=== PATIENT | female | born 1990 | race African-American/Black ===

== ENCOUNTER 2016-03-22 18:54 | Emergency (ER) | payer OTHER ==
[2016-03-22 19:25] VITALS: BP 119/68; PULSE 77; TEMP 98.4; BMI 29.9
--- NOTE | 2016-03-22 19:32 | PDOC ---
History of Present Illness - General Chief Complaint: Cold Symptoms Stated Complaint: NECK PAIN/SORE THROAT Time Seen by Provider: 03/22/16 19:24 History Source: Patient Exam Limitations: No Limitations - History of Present Illness Initial Comments: CHIEF COMPLAINT: 25 y/o afebrile female with no significant PMH c/o sore throat and head congestion since last night. HISTORY OF PRESENT ILLNESS: The patient denies f/c, n/v/d, CP, SOB, runny nose , cough, body aches, abd pain, back pain. She took 1 advil liquid gel yesterday which didn't help much. She did not receive the flu shot this year. Vital signs on arrival are within normal limits. REVIEW OF SYSTEMS: GENERAL/CONSTITUTIONAL: No fever/chills. No weakness. No weight change. HEAD, EYES, EARS, NOSE AND THROAT: No change in vision. No ear pain or discharge. +sore throat. +head congestion. CARDIOVASCULAR: No chest pain or shortness of breath. RESPIRATORY: No cough, wheezing, or hemoptysis. GASTROINTESTINAL: No abd pain, nausea, vomiting, diarrhea. . GENITOURINARY: No dysuria, frequency, or change in urination. MUSCULOSKELETAL: No joint or muscle swelling or pain. No back pain. +neck pain SKIN: No rash or easy bruising. NEUROLOGIC: No headache, vertigo, loss of consciousness, or loss of sensation. PHYSICAL EXAM: GENERAL: The patient is awake, alert, and fully oriented, in no acute distress. She is very well appearing, ambulatory, in NAD or obvious discomfort. HEAD: Normal with no signs of trauma. No TTP of sinuses. ENT: Pupils equal, round and reactive to light, extraocular movements intact, sclera anicteric, conjunctiva clear. Minimal posterior pharyngeal erythema without tonsilar edema or exudate. NECK: No cervical lymphadenopathy. No midline C-spine TTP or step offs. TTP of b/l cervical paravertebral muscles. Full ROM of cervical spine. LUNGS: Clear to auscultation bilaterally. Normal excursion. No respiratory distress or use of accessory muscles. CV: RRR, S1/S2, no MRG. Cap refill < 2 sec. ABDOMEN: Soft, non-distended, non-tender even to deep palpation, no hepatomegaly or splenomegaly, no masses. EXTREMITIES: Normal range of motion, no edema. NEUROLOGICAL: Normal speech, normal gait. CN II-XII grossly intact. PSYCH: Normal mood, normal affect. SKIN: Warm, dry, normal turgor, no rashes or lesions noted. Past History - Past Medical History Allergies/Adverse Reactions: Allergies Allergy/AdvReac Type Severity Reaction Status Date / Time shellfish derived Allergy Hives Verified 03/22/16 19:18 Home Medications: Ambulatory Orders Albuterol Sulfate Inhaler - [Ventolin HFA Inhaler -] 1 - 2 inh PO QID PRN Phenazopyridine HCl [Pyridium] 200 mg PO TID #5 tablet 08/24/13 Sulfamethoxazole/Trimethoprim [Bactrim DS -] 1 tab PO BID #5 tablet 08/24/13 Asthma: Yes - Family Disease History Family Disease History: Other: Mother (cervical cancer) - Reproductive History (#): 0 Para: 0 - Psycho/Social/Smoking Cessation Hx Anxiety: No Suicidal Ideation: No Smoking Status: No Smoking History: Never smoked Number of Cigarettes Smoked Daily: 0 Hx Alcohol Use: No Substance Use Type: None *Physical Exam - Vital Signs Last Vital Signs Temp Pulse Resp BP Pulse Ox 98.4 F 77 18 119/68 99 03/22/16 19:15 03/22/16 19:15 03/22/16 19:15 03/22/16 19:15 03/22/16 19:15 Medical Decision Making - Medical Decision Making A/P: 25 y/o female with head cold and sore throat. Plan is to discharge to home with supportive care instructions. Pt instructed to return to the ER with any worsening or concerning symptoms. The patient verbalizes understanding of all instructions, has no further questions and is awaiting discharge. *DC/Admit/Observation/Transfer Diagnosis at time of Disposition: Head cold - Discharge Dispostion Disposition: HOME Condition at time of disposition: Good - Referrals Referrals: Susan Wilkinson [Primary Care Provider] - - Patient Instructions Printed Discharge Instructions: DI for Nasal Congestion, DI for Common Cold Additional Instructions: Discharge Instructions: -Take 600mg of Ibuprofen every 6 hours with food for headache/pain -Take over the counter zyrtec and sudafed for head congestion -Drink at least 64oz of water daily -Get plenty of rest -Follow up with your doctor next week -Return to the ER with any worsening or concerning symptoms - Post Discharge Activity Work/School Note: Back to Work
== END 2016-03-22 20:06 | disposition home or self-care (01) ==
LOC: JER 18:54 → JERFT 18:54
DX: J00 Acute nasopharyngitis [common cold] (principal)
CPT/HCPCS: 99281-25

== ENCOUNTER 2016-06-11 11:18 | Emergency (ER) | payer OTHER ==
[2016-06-11 11:27] VITALS: BP 133/97; BMI 29.7
[2016-06-11] MEDS ORDERED: ACETAMINOPHEN 325 MG TABLET (FP) PO ONE (11:28)
--- NOTE | 2016-06-11 12:54 | PDOC ---
History of Present Illness - General Chief Complaint: Cold Symptoms Stated Complaint: COUGH Time Seen by Provider: 06/11/16 12:48 History Source: Patient Exam Limitations: No Limitations - History of Present Illness Initial Comments: CHIEF COMPLAINT: 25 y/o afebrile female with no significant PMH c/o cough, body aches and nasal congestion since Thursday. HISTORY OF PRESENT ILLNESS: The patient states she first noticed a fever yesterday and took dayquil and nyquil. She states her cough is dry. She denies earache, sore throat, n/v/d, CP, SOB, abd pain. She is drinking liquids. She did not receive the flu shot this year. Vital signs on arrival are notable for pulse of 100 secondary to temp of 101.2. REVIEW OF SYSTEMS: GENERAL/CONSTITUTIONAL: + fever/chills. No weakness. No weight change. +body aches. HEAD, EYES, EARS, NOSE AND THROAT: No change in vision. No ear pain or discharge. No sore throat. +nasal congestion CARDIOVASCULAR: No chest pain or shortness of breath. RESPIRATORY: +dry cough. No wheezing or hemoptysis. GASTROINTESTINAL: No abd pain, nausea, vomiting, diarrhea. GENITOURINARY: No dysuria, frequency, or change in urination. MUSCULOSKELETAL: No joint or muscle swelling or pain. No neck or back pain. SKIN: No rash or easy bruising. NEUROLOGIC: No headache, vertigo, loss of consciousness, or loss of sensation. PHYSICAL EXAM: GENERAL: The patient is awake, alert, and fully oriented, in no acute distress. She is non toxic appearing. HEAD: Normal with no signs of trauma. ENT: Pupils equal, round and reactive to light, extraocular movements intact, sclera anicteric, conjunctiva clear. Neck supple. Nasal congestion. Posterior pharyngeal erythema without tonsilar swelling or exudate. LUNGS: Clear to auscultation bilaterally. Normal excursion. No respiratory distress or use of accessory muscles. CV: RRR, S1/S2, no MRG. Cap refill < 2 sec. ABDOMEN: Soft, non-distended, non-tender even to deep palpation, no hepatomegaly or splenomegaly, no masses. EXTREMITIES: Normal range of motion, no edema. NEUROLOGICAL: Normal speech, normal gait. CN II-XII grossly intact. PSYCH: Normal mood, normal affect. SKIN: Warm, dry, normal turgor, no rashes or lesions noted. Past History - Past Medical History Allergies/Adverse Reactions: Allergies Allergy/AdvReac Type Severity Reaction Status Date / Time shellfish derived Allergy Hives Verified 06/11/16 11:27 Home Medications: Ambulatory Orders Oseltamivir Phosphate [Tamiflu] 75 mg PO BID #10 capsule 06/11/16 Asthma: Yes - Family Disease History Family Disease History: Other: Mother (cervical cancer) - Reproductive History (#): 0 Para: 0 - Psycho/Social/Smoking Cessation Hx Anxiety: No Suicidal Ideation: No Smoking Status: No Smoking History: Never smoked Number of Cigarettes Smoked Daily: 0 Hx Alcohol Use: No Drug/Substance Use Hx: No Substance Use Type: None *Physical Exam - Vital Signs Last Vital Signs Temp Pulse Resp BP Pulse Ox 101.2 F H 100 H 20 133/97 98 06/11/16 11:24 06/11/16 11:24 06/11/16 11:24 06/11/16 11:24 06/11/16 11:24 ED Treatment Course - Medications Given in the ED: ED Medications Discontinued Medications Generic Name Dose Route Start Last Admin Trade Name Freq PRN Reason Stop Dose Admin Acetaminophen 650 mg 06/11/16 11:28 06/11/16 11:28 Tylenol - PO 06/11/16 11:29 650 mg NOW ONE Administration Medical Decision Making - Medical Decision Making A/P: 25 y/o febrile female who in general appears well but has flu like symptoms. Plan is as follows: 1. Influenza swab 2. PO tylenol Influenza B - positive Will send rx for tamiflu to patient's pharmacy. Suggested she alternate between tylenol and motrin every 6 hours for fever/body aches. Instructed her to drink plenty of fluids and get lots of rest. Pt instructed to return to the ER with any worsening or concerning symptoms The patient verbalizes understanding of all instructions, has no further questions and is awaiting discharge. *DC/Admit/Observation/Transfer Diagnosis at time of Disposition: Influenza B - Discharge Dispostion Disposition: HOME Condition at time of disposition: Improved - Referrals Referrals: Yohan Wilkinson MD [Primary Care Provider] - Call tomorrow - Patient Instructions Printed Discharge Instructions: DI for Influenza -- Adult Additional Instructions: Discharge Instructions: -Take Tamiflu as prescribed -You will continue to have body aches and fever for the next few days -Take 650mg of Tylenol every 4 hours for fever -Take 600mg of Motrin every 6 hours for body aches (with food) -Drink plenty of fluids and get lots of rest -Follow up with Dr. Wilkinson this week -Return to the ER with any worsening or concerning symptoms - Post Discharge Activity Work/School Note: Back to Work
[2016-06-11 13:45] VITALS: PULSE 83; TEMP 99
== END 2016-06-11 13:44 | disposition home or self-care (01) ==
LOC: JERFT 11:18 → JER 11:18 → JERFT 13:44
DX: J10.1 Influenza due to other identified influenza virus with other respiratory manifestations (principal)
CPT/HCPCS: 87804; 99281-25

== ENCOUNTER 2016-06-24 11:58 | Emergency (ER) | payer OTHER ==
[2016-06-24 12:14] VITALS: BP 119/67; PULSE 72; TEMP 98.8; BMI 29.9
[2016-06-24] MEDS ORDERED: KETOROLAC TROMETHAMINE 60 MG/2 ML VIAL IM ONE (13:05)
[2016-06-24] MEDS ORDERED: KETOROLAC TROMETHAMINE 60 MG/2 ML VIAL ONE (13:14)
--- NOTE | 2016-06-24 13:14 | PDOC ---
History of Present Illness - General Chief Complaint: Back Pain Stated Complaint: LOWER BACK PAIN Time Seen by Provider: 06/24/16 12:30 History Source: Patient - History of Present Illness Initial Comments: 06/24/16 13:07 Pt. is a 25 y/o female with no significant PMH who presents to [facility] today complaining of back pain for two weeks. She states that her back pain began while she had the flu. Her back pain has lingered since then and she describes the pain as sharp and that it comes and goes. She states she feels radiation down her left leg with the pain. She has tried ibuprofen and tylenol for the pain with minimal relief. Denies bladder/bowel incontinence, urinary changes, numbness and tingling, weakness, fevers, chills, n/v/d. Past History - Past Medical History Allergies/Adverse Reactions: Allergies Allergy/AdvReac Type Severity Reaction Status Date / Time shellfish derived Allergy Hives Verified 06/24/16 12:15 Home Medications: Ambulatory Orders Cyclobenzaprine HCl [Flexeril 10 mg] 10 mg PO HS #7 tablet 06/24/16 Ibuprofen 800 mg PO TID #21 tablet 06/24/16 Asthma: Yes - Family Disease History Family Disease History: Other: Mother (cervical cancer) - Reproductive History (#): 0 Para: 0 - Psycho/Social/Smoking Cessation Hx Anxiety: No Suicidal Ideation: No Smoking Status: No Smoking History: Never smoked Number of Cigarettes Smoked Daily: 0 Hx Alcohol Use: No Drug/Substance Use Hx: No Substance Use Type: None *Physical Exam - Vital Signs Last Vital Signs Temp Pulse Resp BP Pulse Ox 98.8 F 72 18 119/67 100 06/24/16 12:12 06/24/16 12:12 06/24/16 12:12 06/24/16 12:12 06/24/16 12:12 - Physical Exam Comments: 06/24/16 13:16 General: NAD, AAOx3 breathing easily, VVS MSK: TTP of left lower back. Spine is midline with no deformities felt. (+) flip test on L side. ROM of back intact but with mild pain of all movements. Guarded gait, but other domínguez intact. Toe, heel, walk intact. Strength 5/5 in LE B/L. DP and PT pulses 2+ b/l. NEURO: Alert, awake, appropriate. Cranial nerves 2-12 intact. No deficits to light touch and temperature in upper extremities and lower extremities. No motor deficits in the in upper/lower extremities. Normoreflexic in the upper and lower extremities. Seed Specialist strength equal B/L. Normal speech. Toes are down-going bilaterally. Gait is normal without ataxia. Patellar Reflexes 2+ b/l. Light touch intact b/l. Medical Decision Making - Medical Decision Making 06/24/16 13:24 Pt. is a 25 y.o female presenting with low back spasm most likely caused by coughing from the flu. No neurological findings. Torodol administered for pain control. Will discharge home with flexaril and ibuprofen and instructions to rest and apply heat to the affected area. *DC/Admit/Observation/Transfer Diagnosis at time of Disposition: Back pain Qualifiers: Back pain location: low back pain Chronicity: acute Back pain laterality: left Sciatica presence: with sciatica Sciatica laterality: sciatica of left side Qualified Code(s): M54.42 - Lumbago with sciatica, left side - Discharge Dispostion Disposition: HOME Condition at time of disposition: Improved Admit: No - Prescriptions Prescriptions: Cyclobenzaprine HCl [Flexeril 10 mg] 10 mg PO HS #7 tablet Ibuprofen 800 mg PO TID #21 tablet - Referrals Referrals: Matt Gonzalez MD, [Primary Care Provider] - - Patient Instructions Printed Discharge Instructions: DI for Low Back Pain Additional Instructions: You have a low back spasm. You were prescribed ibuprofen and flexeril for the pain. Take the ibuprofen 1 800mg tab three times a day. The flexeril is for spasm. Take one pill before bed. Do not drive after taking flexeril as it can make you drowsy. Use heat on the affected area for 20 minute periods with 20 minutes of rest in between. Avoid lifting heavy objects until the spasm stops. Follow up with your primary care provider if your symptoms persist. - Post Discharge Activity Work/School Note: Back to Work
== END 2016-06-24 13:54 | disposition home or self-care (01) ==
LOC: JERFT 11:58
PROC: 3E0233Z Introduction of Anti-inflammatory into Muscle, Percutaneous Approach (ICD-10-PCS; principal; 2016-06-24)
DX: M54.42 Lumbago with sciatica, left side (principal)
CPT/HCPCS: 96372; 99281-25

== ENCOUNTER 2016-09-18 11:32 | Emergency (ER) | payer OTHER ==
[2016-09-18 11:38] VITALS: BP 95/55; PULSE 60; TEMP 98.2; BMI 28.3
[2016-09-18 12:22] LABS: URINE APPEARANCE CLEAR; URINE BILIRUBIN NEGATIVE (NEGATIVE); URINE BLOOD NEGATIVE (NEGATIVE); URINE COLOR LTYELLOW; URINE GLUCOSE (UA) NEGATIVE (NEGATIVE); URINE KETONE NEGATIVE (NEGATIVE); URINE LEUK ESTERASE NEGATIVE (NEGATIVE); URINE NITRITE NEGATIVE (NEGATIVE); URINE PROTEIN NEGATIVE (NEGATIVE); URINE UROBILINOGEN NEGATIVE mg/dL (0.2-1.0)
--- NOTE | 2016-09-18 13:05 | PDOC ---
History of Present Illness - General Chief Complaint: Back Pain Stated Complaint: BACK PAIN Time Seen by Provider: 09/18/16 11:57 History Source: Patient Exam Limitations: No Limitations - History of Present Illness Initial Comments: 09/18/16 13:00 CC mild lower back pain with continue odorous vaginal discharge Timing/Duration: reports: getting worse Quality: reports: mild Past History - Past Medical History Allergies/Adverse Reactions: Allergies Allergy/AdvReac Type Severity Reaction Status Date / Time No Known Drug Allergies Allergy Verified 09/18/16 11:35 shellfish derived Allergy Hives Verified 09/18/16 11:35 Home Medications: Ambulatory Orders NK [No Known Home Medication] 09/18/16 Asthma: Yes - Family Disease History Family Disease History: Other: Mother (cervical cancer) - Reproductive History (#): 0 Para: 0 - Psycho/Social/Smoking Cessation Hx Anxiety: No Suicidal Ideation: No Smoking Status: No Smoking History: Never smoked Number of Cigarettes Smoked Daily: 0 Hx Alcohol Use: No Drug/Substance Use Hx: No Substance Use Type: None Review of Systems - Review of Systems Constitutional: Yes: Fever, Malaise. No: Symptoms Reported, Chills HEENTM: No: Symptoms Reported Respiratory: Yes: Cough. No: Symptoms reported Cardiac (ROS): Yes: Symptoms Reported ABD/GI: Yes: Symptoms Reported *Physical Exam - Vital Signs Last Vital Signs Temp Pulse Resp BP Pulse Ox 98.2 F 60 18 95/55 98 09/18/16 11:35 09/18/16 11:35 09/18/16 11:35 09/18/16 11:35 09/18/16 11:35 - Physical Exam General Appearance: Yes: Appropriately Dressed. No: Apparent Distress HEENT: positive: TMs Normal, Pharynx Normal Neck: negative: Tender, Rigid Respiratory/Chest: positive: Chest Tender Female Pelvic Exam: positive: other (creamy white vaginal discharge with odor) Gastrointestinal/Abdominal: positive: Other (soft, non tender) Lymphatic: negative: Adenopathy Extremity: negative: Normal Capillary Refill Integumentary: negative: Normal Color ED Treatment Course - ADDITIONAL ORDERS Additional order review: Laboratory Results 09/18/16 12:10 Urine Color Ltyellow Urine Appearance Clear Urine pH 6.0 Urine Protein Negative Urine Glucose (UA) Negative Urine Ketones Negative Urine Blood Negative Urine Nitrite Negative Urine Bilirubin Negative Urine Urobilinogen Negative Ur Leukocyte Esterase Negative Urine HCG, Qual Negative Medical Decision Making - Medical Decision Making 09/18/16 13:03 will wait for genital cultures and STD tests; treat for yeast *DC/Admit/Observation/Transfer Diagnosis at time of Disposition: Vaginitis Qualifiers: Chronicity: acute Qualified Code(s): N76.0 - Acute vaginitis - Discharge Dispostion Disposition: HOME Condition at time of disposition: Stable Admit: No - Patient Instructions Additional Instructions: we will call you with results of labs om thursday - Post Discharge Activity Work/School Note: Back to Work
--- NOTE | 2016-09-18 13:16 | PDOC ---
*Physical Exam - Vital Signs Last Vital Signs Temp Pulse Resp BP Pulse Ox 98.2 F 60 18 95/55 98 09/18/16 11:35 09/18/16 11:35 09/18/16 11:35 09/18/16 11:35 09/18/16 11:35 ED Treatment Course - ADDITIONAL ORDERS Additional order review: Laboratory Results 09/18/16 12:10 Urine Color Ltyellow Urine Appearance Clear Urine pH 6.0 Urine Protein Negative Urine Glucose (UA) Negative Urine Ketones Negative Urine Blood Negative Urine Nitrite Negative Urine Bilirubin Negative Urine Urobilinogen Negative Ur Leukocyte Esterase Negative Urine HCG, Qual Negative *DC/Admit/Observation/Transfer Diagnosis at time of Disposition: Vaginitis Qualifiers: Chronicity: acute Qualified Code(s): N76.0 - Acute vaginitis - Discharge Dispostion Disposition: HOME Condition at time of disposition: Stable - Prescriptions Prescriptions: Fluconazole [Diflucan -] 150 mg PO ONCE #1 tablet - Referrals Referrals: Caridad Butcher MD [Staff Physician] - - Patient Instructions Additional Instructions: we will call you with results of labs om thursday - Post Discharge Activity Work/School Note: Back to Work
== END 2016-09-18 13:18 | disposition home or self-care (01) ==
LOC: JERFT 11:32
DX: N76.0 Acute vaginitis (principal)
CPT/HCPCS: 36415; 81003; 84703; 87070; 87205; 87491; 87591; 99281-25

== ENCOUNTER 2017-12-23 01:10 | Emergency (ER) | payer OTHER ==
[2017-12-23 01:43] VITALS: BP 126/78; PULSE 78; TEMP 98.8; BMI 29.9
--- NOTE | 2017-12-23 01:46 | PDOC ---
*Physical Exam - Vital Signs Last Vital Signs Temp Pulse Resp BP Pulse Ox 98.8 F 78 19 126/78 99 12/23/17 01:39 12/23/17 01:39 12/23/17 01:39 12/23/17 01:39 12/23/17 01:39 Medical Decision Making - Medical Decision Making 12/23/17 01:46 Pt seen by Midlevel Provider under my direct supervision Corneal abrasion with facial scrub Per PRODUCT SAFETY COORDINATOR exam fluorescein uptake without vision loss D/c with treatment for corneal abrasion I agree with plan as outlined by Midlevel Provider *DC/Admit/Observation/Transfer Diagnosis at time of Disposition: Corneal abrasion, left - Discharge Dispostion Disposition: HOME Condition at time of disposition: Fair - Prescriptions Prescriptions: Erythromycin 0.5% Eye Ointment [Erythromycin 0.5% Eye Ointment -] 1 applic OP QID #1 tube - Referrals Referrals: Jania Mcgrath MD [Staff Physician] - 24 hours - Patient Instructions Printed Discharge Instructions: Corneal Abrasion - Post Discharge Activity Forms/Work/School Notes: Back to Work
[2017-12-23] MEDS ORDERED: TETRACAINE 0.5% HCL 0.6ML DROPPER.BOTTLE OP ONE (02:10)
[2017-12-23] MEDS ORDERED: ERYTHROMYCIN 0.5% OPHTHALMIC OINTMENT 3.5 GM TUBE OU ONE (02:10)
[2017-12-23] MEDS ORDERED: FLUORESCEIN NA 1 EA STRIP OU ONE (02:12)
--- NOTE | 2017-12-23 02:13 | PDOC ---
History of Present Illness - General Chief Complaint: Foreign Body (FB) Stated Complaint: EYE PROBLEM Time Seen by Provider: 12/23/17 01:39 History Source: Patient - History of Present Illness Initial Comments: 12/23/17 02:13 27 year old female c/o left eye pain after washing face with a face wash with beads. patient reports pain to upper cornea of left eye. denies vision loss/ blurred vision. no past medical history Past History - Past Medical History Allergies/Adverse Reactions: Allergies Allergy/AdvReac Type Severity Reaction Status Date / Time No Known Drug Allergies Allergy Verified 12/23/17 01:44 shellfish derived Allergy Hives Verified 12/23/17 01:44 Home Medications: Ambulatory Orders Fluconazole [Diflucan -] 150 mg PO ONCE #1 tablet 09/18/16 Erythromycin 0.5% Eye Ointment [Erythromycin 0.5% Eye Ointment -] 1 applic OP QID #1 tube 12/23/17 Asthma: Yes - Family Disease History Family Disease History: Other: Mother (cervical cancer) - Reproductive History (#): 0 Para: 0 - Suicide/Smoking/Psychosocial Hx Smoking Status: No Smoking History: Never smoked Have you smoked in the past 12 months: No Number of Cigarettes Smoked Daily: 0 Information on smoking cessation initiated: No Hx Alcohol Use: No Drug/Substance Use Hx: No Substance Use Type: None *Physical Exam - Vital Signs Last Vital Signs Temp Pulse Resp BP Pulse Ox 98.8 F 78 19 126/78 99 12/23/17 01:39 12/23/17 01:39 12/23/17 01:39 12/23/17 01:39 12/23/17 01:39 - Physical Exam General Appearance: Yes: Appropriately Dressed HEENT: positive: Other (+ fluorsciene uptake of left upper cornea. snellen 20/ 20 left eye) *DC/Admit/Observation/Transfer Diagnosis at time of Disposition: Corneal abrasion, left Qualifiers: Encounter type: initial encounter Qualified Code(s): S05.02XA - Injury of conjunctiva and corneal abrasion without foreign body, left eye, initial encounter - Discharge Dispostion Disposition: HOME Condition at time of disposition: Fair - Prescriptions Prescriptions: Erythromycin 0.5% Eye Ointment [Erythromycin 0.5% Eye Ointment -] 1 applic OP QID #1 tube - Referrals Referrals: Jania Mcgrath MD [Staff Physician] - - Patient Instructions Printed Discharge Instructions: Corneal Abrasion - Post Discharge Activity Forms/Work/School Notes: Back to Work
[2017-12-23] MEDS ORDERED: ERYTHROMYCIN 0.5% OPHTHALMIC OINTMENT 3.5 GM TUBE ONE (02:39)
[2017-12-23] MEDS ORDERED: FLUORESCEIN NA 1 EA STRIP ONE (02:39)
== END 2017-12-23 02:48 | disposition home or self-care (01) ==
LOC: JER 01:10
DX: S05.02XA Injury of conjunctiva and corneal abrasion without foreign body, left eye, initial encounter (principal); X58.XXXA Exposure to other specified factors, initial encounter; Y93.89 Activity, other specified; Y92.9 Unspecified place or not applicable
CPT/HCPCS: 99281-25

== ENCOUNTER 2018-07-16 21:14 | Observation (INO) | payer OTHER ==
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
[2018-07-16 21:54] VITALS: BMI 30.8
[2018-07-16] MEDS ORDERED: ceFAZolin 2 GRAM PREMIX BAG IVPB ONE (22:57)
[2018-07-16] MEDS ORDERED: BACITRACIN 15 GM TUBE TOPICAL OINTMENT TP ONE (22:58)
[2018-07-16] MEDS ORDERED: CEFAZOLIN 2 GM/D5W 2 GM/50 ML ML IVPB ONE (23:00)
[2018-07-16] MEDS ORDERED: BACITRACIN 0.9 GM PACKET ONE (23:14)
[2018-07-16 23:22] LABS: BASO % 1.5 % (0-2.0); EOS % 1.8 % (0-4.5); HEMATOCRIT 37.4 % (32.4-45.2); HEMOGLOBIN 12.2 GM/dL (10.7-15.3); LYMPH % 36.3 % (8-40); MCH 29.4 pg (25.7-33.7); MCHC 32.6 g/dl (32.0-36.0); MEAN CELL VOLUME 89.9 fl (80-96); MEAN PLT VOLUME 9.3 fl (7.5-11.1); MONO % 6.5 % (3.8-10.2); NEUT % 53.9 % (42.8-82.8); PLATELET COUNT 216 K/MM3 (134-434); RBC 4.16 M/mm3 (3.60-5.2); RDW 13.2 % (11.6-15.6); WHITE BLOOD COUNT 6.1 K/mm3 (4.0-10.0)
[2018-07-16] MEDS ORDERED: DIPHTH,PERTUSS(ACELL),TET 0.5 ML DISP.SYRIN IM ONE ×2 (23:25→23:35)
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
[2018-07-16 23:49] LABS: ALBUMIN 3.6 g/dl (3.4-5.0); BILIRUBIN,TOTAL 0.3 mg/dL (0.2-1); CALCIUM 9.1 mg/dL (8.5-10.1); CREATININE 0.9 mg/dL (0.55-1.3); TOT PROT 7.1 g/dl (6.4-8.2)
--- NOTE | 2018-07-17 00:46 | PDOC ---
Documentation entered by Larry Bartlett SCRIBE, acting as scribe for Shawanda Hatch MD. Shawanda Hatch MD: This documentation has been prepared by the hectoribe, Larry Bartlett SCRIBE, under my direction and personally reviewed by me in its entirety. I confirm that the documentation accurately reflects all work, treatment, procedures, and medical decision making performed by me. Attending Attestation - Resident Resident Name: RaymondAkbar - ED Attending Attestation I have performed the following: I have examined & evaluated the patient, The case was reviewed & discussed with the resident, I agree w/resident's findings & plan - HPI HPI: 07/16/18 23:02 The patient is a 27 year old female with no significant past medical history who presents to the emergency department with a burn to her right breast since 1 week ago. The patient states that she was at home multitasking and cooking about 1 week ago when she got burned on her right breast. The patient states that she was not wearing a shirt at the time of the incident. She states that she subsequently experienced some pain, bruising, and discharge from her burn site. She states that she has been using at home remedy of aloe vera and bacitracin. She states that she came to the ED today secondary to some draining and concern for infection. The patient denies any fever, chills, nausea, vomiting, diarrhea, radiation of her pain secondary to burn, numbness, weakness or tingling sensations. She denies any chest pain or shortness of breath. The patient denies any other complaints. - Physicial Exam PE: 07/16/18 23:26 GENERAL: Awake, alert, and fully oriented, in no acute distress HEAD: No signs of trauma EYES: PERRLA, EOMI, sclera anicteric, conjunctiva clear ENT: Auricles normal inspection, hearing grossly normal, nares patent, oropharynx clear without exudates. Moist mucosa NECK: Normal ROM, supple, no lymphadenopathy, JVD, or masses LUNGS: Breath sounds equal, clear to auscultation bilaterally. No wheezes, and no crackles HEART: Regular rate and rhythm, normal S1 and S2, no murmurs, rubs or gallops ABDOMEN: Soft, nontender, normoactive bowel sounds. No guarding, no rebound. No masses EXTREMITIES: Normal range of motion, no edema. No clubbing or cyanosis. No cords, erythema, or tenderness NEUROLOGICAL: Cranial nerves II through XII grossly intact. Normal speech, normal gait SKIN: (+)3.5x 1.5 inch oval burn area with surrounding erythematous cellulitis on right breast . - Medical Decision Making 07/17/18 06:55 Pt will be admitted for her breast wound and surrounding cellulitis. She will be seen by the gen surgeon and she will be given IV abx. and tdap vaccine
[2018-07-17 00:54] LABS: ERYTHROCYTE SEDIMENTATION RATE 25 mm/hr (0-20)
[2018-07-17 02:42] VITALS: TEMP 98.9
[2018-07-17] MEDS ORDERED: MUPIROCIN 2% TOPICAL OINTMENT 22 GM TUBE TP SCH (08:00)
--- NOTE | 2018-07-17 08:23 | HP ---
CHIEF COMPLAINT: right breast burn PCP:none HISTORY OF PRESENT ILLNESS: The patient is a 27 year old female with a PMH of asthma, that presented to Emergency Room complaining of burn in right breast x 1 week. She states that she was cooking and she accidentally burn herself with a hot pot. The patient applied neosporin ointment and noticed improvement in appearance of the wound. Yesterday she put a bra, noticed small amount of yellow discharge and decided to come to the hospital. She denies fever, chills, more discharge coming from the burn. PAST MEDICAL HISTORY: as above PAST SURGICAL HISTORY: none Social History: Smoking:denies Alcohol:occasionally Drugs: denies Family History: n/a Allergies No Known Drug Allergies Allergy (Verified 12/23/17 01:44) shellfish derived Allergy (Verified 12/23/17 01:44) Hives HOME MEDICATIONS: Home Medications Medication Instructions Recorded NK [No Known Home Medication] 07/16/18 REVIEW OF SYSTEMS CONSTITUTIONAL: Absent: fever, chills, diaphoresis, generalized weakness, malaise, loss of appetite, weight change HEENT: Absent: rhinorrhea, nasal congestion, throat pain, CARDIOVASCULAR: Absent: chest pain, syncope, palpitations, irregular heart rate, lightheadedness , peripheral edema RESPIRATORY: Absent: cough, shortness of breath, wheezing, GASTROINTESTINAL: Absent: abdominal pain, nausea, vomiting, diarrhea, constipation GENITOURINARY: Absent: dysuria, frequency, urgency, MUSCULOSKELETAL: Absent: myalgia, arthralgia SKIN: burn Absent: rash, itching, pallor NEUROLOGIC: Absent: headache, focal weakness or paresthesias, dizziness PSYCHIATRIC: Absent: anxiety, depression, PHYSICAL EXAMINATION Vital Signs - 24 hr 07/16/18 07/17/18 07/17/18 21:46 01:04 02:41 Temperature 98.4 F 98.9 F Pulse Rate 84 Pulse Rate [ 70 Radial] Respiratory 17 20 Rate Blood Pressure 120/82 Blood Pressure 120/80 [Left Arm] O2 Sat by Pulse 100 100 100 Oximetry (%) 07/17/18 06:39 Temperature Pulse Rate Pulse Rate [ 70 Radial] Respiratory 20 Rate Blood Pressure Blood Pressure 110/73 [Left Arm] O2 Sat by Pulse 100 Oximetry (%) GENERAL: Awake, alert, and fully oriented, in no acute distress. HEAD: Normal with no signs of trauma. EYES: Pupils equal, round and reactive to light, extraocular movements intact, conjunctiva clear. EARS, NOSE, THROAT: Oropharynx clear without exudates. Moist mucous membranes. NECK: Normal range of motion, supple without lymphadenopathy, JVD, or masses. LUNGS: Breath sounds equal, clear to auscultation bilaterally. No wheezes, and no crackles. HEART: Regular rate and rhythm, normal S1 and S2 without murmur, rub or gallop. ABDOMEN: Soft, nontender, normoactive bowel sounds, no guarding, no rebound, no masses. MUSCULOSKELETAL: Normal range of motion at all joints. No bony deformities or tenderness. UPPER EXTREMITIES: No peripheral edema. LOWER EXTREMITIES: 2+ pulses, no peripheral edema. NEUROLOGICAL: non focal. Normal speech. PSYCHIATRIC: Cooperative. Good eye contact. Appropriate mood and affect. SKIN: Warm, dry, no rashes, right breast: 2 cm x 5 cm burn above right nipple, dry, no drainage, no tenderness to palpation. Laboratory Results - last 24 hr 07/16/18 07/16/18 23:10 23:26 WBC 6.1 RBC 4.16 Hgb 12.2 Hct 37.4 MCV 89.9 MCH 29.4 MCHC 32.6 RDW 13.2 Plt Count 216 MPV 9.3 Absolute Neuts (auto) 3.3 Neutrophils % 53.9 Lymphocytes % 36.3 D Monocytes % 6.5 Eosinophils % 1.8 Basophils % 1.5 Nucleated RBC % 0 ESR 25 H Sodium 137 Potassium 4.0 Chloride 106 Carbon Dioxide 26 Anion Gap 5 L BUN 13 Creatinine 0.9 Est GFR (CKD-EPI)AfAm 103.00 Est GFR (CKD-EPI)NonAf 88.87 Random Glucose 112 H Calcium 9.1 Total Bilirubin 0.3 AST 19 ALT 26 Alkaline Phosphatase 68 C-Reactive Protein 2.7 H Total Protein 7.1 Albumin 3.6 ASSESSMENT/PLAN: The patient is a 27 year old female with PMH of asthma, admitted to observation for burn. s/p burn in right breast: -gauze, Bactroban ointment TID -avoid tight clothing -keep the wound dry DVT PPX: -scds Dispo: observation Problem List - Problem (1) Contact with hot kitchen stove Code(s): X15.0XXA - CONTACT WITH HOT STOVE (KITCHEN), INITIAL ENCOUNTER Qualifiers: Encounter type: initial encounter Qualified Code(s): X15.0XXA - Contact with hot stove (kitchen), initial encounter (2) Partial thickness burn Code(s): SFQ2862 - Visit type - Emergency Visit Emergency Visit: Yes ED Registration Date: 07/16/18 Care time: The patient presented to the Emergency Department on the above date and was hospitalized for further evaluation of their emergent condition. - New Patient This patient is new to me today: Yes Date on this admission: 07/17/18 - Critical Care Critical Care patient: No
--- NOTE | 2018-07-17 09:00 | DS ---
Physical Exam: SUBJECTIVE: Patient seen and examined, complaining of burn in right breast. OBJECTIVE: Vital Signs Period Temp Pulse Resp BP Sys/Salmon Pulse Ox Last 24 Hr 98.4 F-98.9 F 70-84 17-20 110-120/73-82 100-100 PHYSICAL EXAM GENERAL: Awake, alert, and fully oriented, in no acute distress. HEAD: Normal with no signs of trauma. EYES: Pupils equal, round and reactive to light, extraocular movements intact, conjunctiva clear. EARS, NOSE, THROAT: Oropharynx clear without exudates. Moist mucous membranes. NECK: Normal range of motion, supple without lymphadenopathy, JVD, or masses. LUNGS: Breath sounds equal, clear to auscultation bilaterally. No wheezes, and no crackles. HEART: Regular rate and rhythm, normal S1 and S2 without murmur, rub or gallop. ABDOMEN: Soft, nontender, normoactive bowel sounds, no guarding, no rebound, no masses. MUSCULOSKELETAL: Normal range of motion at all joints. No bony deformities or tenderness. UPPER EXTREMITIES: No peripheral edema. LOWER EXTREMITIES: 2+ pulses, no peripheral edema. NEUROLOGICAL: non focal. Normal speech. PSYCHIATRIC: Cooperative. Good eye contact. Appropriate mood and affect. SKIN: Warm, dry, no rashes, right breast: 2 cm x 5 cm burn above right nipple, dry, no drainage, no tenderness to palpation. LABS Laboratory Results - last 24 hr 07/16/18 07/16/18 23:10 23:26 WBC 6.1 RBC 4.16 Hgb 12.2 Hct 37.4 MCV 89.9 MCH 29.4 MCHC 32.6 RDW 13.2 Plt Count 216 MPV 9.3 Absolute Neuts (auto) 3.3 Neutrophils % 53.9 Lymphocytes % 36.3 D Monocytes % 6.5 Eosinophils % 1.8 Basophils % 1.5 Nucleated RBC % 0 ESR 25 H Sodium 137 Potassium 4.0 Chloride 106 Carbon Dioxide 26 Anion Gap 5 L BUN 13 Creatinine 0.9 Est GFR (CKD-EPI)AfAm 103.00 Est GFR (CKD-EPI)NonAf 88.87 Random Glucose 112 H Calcium 9.1 Total Bilirubin 0.3 AST 19 ALT 26 Alkaline Phosphatase 68 C-Reactive Protein 2.7 H Total Protein 7.1 Albumin 3.6 HOSPITAL COURSE: The patient is a 27 year old female with a PMH of asthma, that presented to Emergency Room complaining of burn in right breast x 1 week. She states that she was cooking and she accidentally burn herself with a hot pot. The patient applied neosporin ointment and noticed improvement in appearance of the wound. Yesterday she put a bra, noticed small amount of yellow discharge and decided to come to the hospital. She denies fever, chills, more discharge coming from the burn. The patient was admitted for observation. She was given recommendations to apply Bactroban three times a day, keep the burn dry, apply gauze and wear comfortable bra. She was also referred to see primary care physician in a week. The patient was notified that if she notices fever, chills , pain in the breast, discharge, she needs to come to ED. Date of Admission:07/16/18 Date of Discharge: 07/17/18 Minutes to complete discharge: 35 Discharge Summary Reason For Visit: CELLULITIS OF FEMALE BREAST/PARTIAL THICKNESS BURN Current Active Problems Cellulitis of female breast (Acute) Contact with hot kitchen stove (Acute) Partial thickness burn (Acute) Condition: Good - Instructions Diet, Activity, Other Instructions: You were observed in the hospital for burn in right breast. We recommend that you will apply clean gauze and antibiotic (Bactroban) on your wound there times a day. Please keep your wound clean, avoid tight clothing, bra. Please see your primary care physician in 1-2 weeks. If you don't have one, we provided name of [facility] primary care clinic. If you notice that your burn is getting worse, has more swelling, drainage, pain , fever, chills or if you notice worsening of any of your symptoms, call 911 or come back to Emergency Room as soon as possible. Referrals: Zander Calvo MD [Staff Physician] - Disposition: HOME - Home Medications Comprehensive Discharge Medication List: Ambulatory Orders Mupirocin Ointment [Bactroban 2% Ointment -] 1 applic TP TID 14 Days #1 applic 07/17/18 Problem List - Problems (1) Contact with hot kitchen stove Code(s): X15.0XXA - CONTACT WITH HOT STOVE (KITCHEN), INITIAL ENCOUNTER Qualifiers: Encounter type: initial encounter Qualified Code(s): X15.0XXA - Contact with hot stove (kitchen), initial encounter (2) Partial thickness burn Code(s): [id number] - This patient is new to me today: Yes Date on this admission: 07/17/18 Emergency Visit: Yes ED Registration Date: 07/16/18 Care time: The patient presented to the Emergency Department on the above date and was hospitalized for further evaluation of their emergent condition. Critical Care patient: No - Discharge Referral Referred to [facility] No
--- NOTE | 2018-07-17 09:05 | PN ---
Teaching Attending Note Name of Resident: Gayathri Chauhan ATTENDING PHYSICIAN STATEMENT I saw and evaluated the patient. I reviewed the resident's note and discussed the case with the resident. I agree with the resident's findings and plan as documented. SUBJECTIVE: OBJECTIVE: Right sided breast lesion 2.5inch x 1 inch healing properly with some yellow discharge. patient had nipple piercing slight tenderness noted on exam S1 and s2 RRR lungs CTA ASSESSMENT AND PLAN: this is a 27 y/o f without any PMH presented after burning her skin while cooking, the patient denied any fever or chills she just had pain plan: bactroban ointment apply three times a day x 7 days keep wound dry and clean apply dressing wear sports bra patient was instructed to come to the hospital if she is having fever and chills for antiobiotic therapy
[2018-07-17 09:06] VITALS: BP 112/72; PULSE 72
[2018-07-17] MEDS ORDERED: HEPARIN NA (PORCINE) 5,000 UNITS/ML 1ML VIAL SQ SCH (10:00)
== END 2018-07-17 09:07 | disposition home or self-care (01) ==
LOC: JER 21:14 → JERBED 23:31
PROVIDERS: ADMIT Internal Medicine; ATTEND Internal Medicine
PROC: 3E03329 Introduction of Other Anti-infective into Peripheral Vein, Percutaneous Approach (ICD-10-PCS; principal; 2018-07-16)
PROC: 3E0234Z Introduction of Serum, Toxoid and Vaccine into Muscle, Percutaneous Approach (ICD-10-PCS; 2018-07-16)
DX: T21.21XA Burn of second degree of chest wall, initial encounter (principal); T31.0 Burns involving less than 10% of body surface; N61.0 Mastitis without abscess; X15.0XXA Contact with hot stove (kitchen), initial encounter; Y93.9 Activity, unspecified; Y92.9 Unspecified place or not applicable
CPT/HCPCS: 36415; 80053; 85025; 85651; 86140; 90715; 99283-25; G0378

== ENCOUNTER 2020-05-21 12:02 | Emergency (ER) | payer OTHER ==
[2020-05-21 13:19] VITALS: BP 112/57; PULSE 65; TEMP 98.6; BMI 29.0
== END 2020-05-21 16:00 | disposition home or self-care (01) ==
LOC: JERFT 12:02
DX: L81.4 Other melanin hyperpigmentation (principal)
CPT/HCPCS: 93970-TC; 99284-25

== ENCOUNTER 2021-08-22 10:19 | Emergency (ER) | payer OTHER ==
[2021-08-22 10:28] VITALS: BP 106/62; PULSE 90; TEMP 98.7; BMI 35.2
[2021-08-22] MEDS ORDERED: ACETAMINOPHEN 500 MG TABLET (FP) PO ONE (11:22)
[2021-08-22] MEDS ORDERED: CYCLOBENZAPRINE HCL 10 MG TABLET (FP) PO ONE (11:22)
[2021-08-22] MEDS ORDERED: CYCLOBENZAPRINE HCL 10 MG TABLET (FP) ONE (11:34)
[2021-08-22] MEDS ORDERED: ACETAMINOPHEN 500 MG TABLET (FP) ONE ×2 (11:34→13:02)
[2021-08-22 12:04] LABS: PH,URINE 7.5 (5.0-8.0); URINE APPEARANCE CLEAR; URINE BILIRUBIN NEGATIVE (NEGATIVE); URINE COLOR YELLOW; URINE GLUCOSE (UA) TRACE (NEGATIVE); URINE KETONE NEGATIVE (NEGATIVE); URINE LEUK ESTERASE NEGATIVE (NEGATIVE); URINE NITRITE NEGATIVE (NEGATIVE); URINE PROTEIN TRACE (NEGATIVE)
[2021-08-22 12:08] LABS: BASO % 0.2 % (0-2.0); EOS % 0.5 % (0-4.5); LYMPH % 12.2 % (8-40); MCH 31.1 pg (25.7-33.7); MCHC 34.4 g/dl (32.0-36.0); MEAN CELL VOLUME 90.4 fl (80-96); MEAN PLT VOLUME 9.4 fl (7.5-11.1); MONO % 5.7 % (3.8-10.2); NEUT % 81.4 % (42.8-82.8); PLATELET COUNT 208 10^3/uL (134-434); RBC 3.87 M/mm3 (3.60-5.2); RDW 13.7 % (11.6-15.6); WHITE BLOOD COUNT 9.5 K/mm3 (4.0-10.0)
[2021-08-22 12:25] LABS: CALCIUM 8.9 mg/dL (8.5-10.1)
[2021-08-22 12:26] LABS: BLOOD UREA NITROGEN 7.5 mg/dL (7-18)
[2021-08-22 12:29] LABS: CREATININE 0.7 mg/dL (0.55-1.3)
[2021-08-22 12:31] LABS: BILIRUBIN,TOTAL 0.3 mg/dL (0.2-1); TOT PROT 6.7 g/dl (6.4-8.2)
[2021-08-22] MEDS ORDERED: SODIUM CHLORIDE 0.9% 500 ML INFUS.BAG IV ONE (13:19)
== END 2021-08-22 16:52 | disposition home or self-care (01) ==
LOC: JER 10:19
DX: O26.892 Other specified pregnancy related conditions, second trimester (principal); M25.512 Pain in left shoulder; Z3A.22 22 weeks gestation of pregnancy
CPT/HCPCS: 36415; 71275-TC; 80053; 81003; 85025; 85379; 87086; 99285-25; Q9967

== ENCOUNTER 2021-12-27 15:07 | Inpatient (IN) | payer OTHER ==
[2021-12-27] MEDS ORDERED: DINOPROSTONE 10 MG VAGINAL SUPPOSITORY VG STA (15:58)
[2021-12-27] MEDS: ELECTROLYTE-148 SOLN 1,000 ML IV SCH ×2 (16:15→23:35)
[2021-12-27 16:45] LABS: INR 0.91 (0.83-1.09); PROTHROMBIN TIME (PATIENT) 10.5 SEC (9.7-13.0)
[2021-12-27 16:46] LABS: BASO % 0.3 % (0-2.0); EOS % 0.4 % (0-4.5); HEMATOCRIT 37.6 % (32.4-45.2); HEMOGLOBIN 12.6 GM/dL (10.7-15.3); LYMPH % 18.5 % (8-40); MCHC 33.5 g/dl (32.0-36.0); MEAN CELL VOLUME 89.7 fl (80-96); MEAN PLT VOLUME 10.1 fl (7.5-11.1); MONO % 6.4 % (3.8-10.2); NEUT % 74.4 % (42.8-82.8); PLATELET COUNT 197 10^3/uL (134-434); RDW 14.2 % (11.6-15.6); WHITE BLOOD COUNT 6.8 K/mm3 (4.0-10.0)
[2021-12-27 16:48] LABS: ACTIVATED PTT 30.7 SECONDS (25.2-36.5)
[2021-12-27 16:57] LABS: BLOOD UREA NITROGEN 7.5 mg/dL (7-18); CALCIUM 9.2 mg/dL (8.5-10.1)
[2021-12-27 16:59] LABS: CREATININE 0.8 mg/dL (0.55-1.3)
[2021-12-27 17:01] LABS: BILIRUBIN,TOTAL 0.6 mg/dL (0.2-1); TOT PROT 6.7 g/dl (6.4-8.2)
[2021-12-27 17:02] VITALS: BMI 36.8
[2021-12-28] MEDS ORDERED: BUTORPHANOL TARTRATE 2 MG/ML VIAL IVPB ONE (02:30)
[2021-12-28] MEDS ORDERED: PROMETHAZINE HCL 25 MG/1 ML VIAL IVPB ONE (02:30)
[2021-12-28] MEDS ORDERED: PROMETHAZINE HCL 25 MG/1 ML VIAL ONE (02:32)
[2021-12-28] MEDS ORDERED: BUTORPHANOL TARTRATE 2 MG/ML VIAL ONE (02:32)
[2021-12-28] MEDS ORDERED: FENTANYL/BUPIVACAINE/NS/PF - PCEA - 50 ML DISP.SYRIN EP ONE (08:18)
[2021-12-28] MEDS ORDERED: NALOXONE HCL 0.4 MG/ML VIAL IVPUSH PRN (08:31)
[2021-12-28] MEDS ORDERED: BUPIVACAINE HCL/PF 0.25% (2.5MG/ML) 10 ML VIAL ONE (08:33)
[2021-12-28] MEDS ORDERED: FENTANYL/BUPIVACAINE/NS/PF - PCEA - 50 ML DISP.SYRIN EP SCH (08:45)
[2021-12-28] MEDS ORDERED: LIDOCAINE HCL 1% PRESERVATIVE FREE - 30ML VIAL ONE (09:25)
[2021-12-28] MEDS ORDERED: OXYTOCIN 20 UNITS in 0.9% NS 20 UNIT/1,000 ML INFUS.BAG IV ONE ×2 (09:25→11:23)
[2021-12-28] MEDS ORDERED: MISOPROSTOL 200 MCG TABLET ONE (10:42)
[2021-12-28] MEDS ORDERED: BISACODYL 10 MG SUPP.RECT RC PRN (10:51)
[2021-12-28] MEDS ORDERED: WITCH HAZEL 50% (TUCKS) 40 PAD/JAR PAD TP PRN (10:51)
[2021-12-28] MEDS ORDERED: ACETAMINOPHEN 325 MG TABLET (FP) PO PRN (10:51)
[2021-12-28] MEDS ORDERED: BENZOCAINE 28 GM HEMORRHOIDAL OINTMENT TP PRN (10:51)
[2021-12-28] MEDS ORDERED: BENZOCAINE 20% 57 GM BOTTLE TP PRN (10:51)
[2021-12-28] MEDS ORDERED: MISOPROSTOL 100 MCG TABLET NR ONE (10:52)
[2021-12-28] MEDS ORDERED: OXYTOCIN 20 UNITS in 0.9% NS 20 UNIT/1,000 ML INFUS.BAG IV SCH (11:00)
[2021-12-28 11:09] LABS: CORD HCO3 22.6 mmHg (20-29); CORD PCO2 86.2 mmHg (30-78); CORD pH 7.037 (7.14-7.44)
[2021-12-28 11:12] LABS: CORD BASE EXCESS -7.6 mmol/L (0-2); CORD HCO3 21.5 mmHg (20-29); CORD PCO2 57.5 mmHg (30-78); CORD pH 7.191 (7.14-7.44)
[2021-12-28] MEDS: IBUPROFEN 600 MG TABLET (FP) PO PRN (23:39)
[2021-12-29] MEDS: IBUPROFEN 600 MG TABLET (FP) PO PRN ×2 (05:08→17:00)
[2021-12-29 09:24] LABS: BASO % 0.4 % (0-2.0); EOS % 0.6 % (0-4.5); HEMATOCRIT 33.5 % (32.4-45.2); HEMOGLOBIN 10.9 GM/dL (10.7-15.3); LYMPH % 20.3 % (8-40); MCH 29.4 pg (25.7-33.7); MCHC 32.4 g/dl (32.0-36.0); MEAN CELL VOLUME 90.7 fl (80-96); MEAN PLT VOLUME 10.5 fl (7.5-11.1); MONO % 7.4 % (3.8-10.2); NEUT % 71.3 % (42.8-82.8); PLATELET COUNT 169 10^3/uL (134-434); RBC 3.69 M/mm3 (3.60-5.2); RDW 14.4 % (11.6-15.6); WHITE BLOOD COUNT 9.4 K/mm3 (4.0-10.0)
[2021-12-29] MEDS ORDERED: SENNOSIDES/DOCUSATE COMBO (SENNA PLUS) TABLET (UD) PO PRN (22:00)
[2021-12-30] MEDS: IBUPROFEN 600 MG TABLET (FP) PO PRN (06:27)
[2021-12-30 09:46] LABS: POC NITRAZINE NEG
[2021-12-30 15:18] VITALS: BP 136/70; PULSE 90; RESP 18; TEMP 98
== END 2021-12-30 19:15 | disposition home or self-care (01) | DRG 560 ==
LOC: JLDR 15:07 → J3W 12-28 16:45
PROVIDERS: ADMIT Student in an Organized Health Care Education/Training Program; ATTEND Student in an Organized Health Care Education/Training Program
PROC: 10E0XZZ Delivery of Products of Conception, External Approach (ICD-10-PCS; principal; 2021-12-27)
DX: O41.03X0 Oligohydramnios, third trimester, not applicable or unspecified (principal); O48.0 Post-term pregnancy; O69.81X0 Labor and delivery complicated by cord around neck, without compression, not applicable or unspecified; O32.6XX0 Maternal care for compound presentation, not applicable or unspecified; O13.4 Gestational [pregnancy-induced] hypertension without significant proteinuria, complicating childbirth; O99.214 Obesity complicating childbirth; E66.9 Obesity, unspecified; Z3A.41 41 weeks gestation of pregnancy; Z37.0 Single live birth
CPT/HCPCS: 36415; 36600; 59409; 80048; 80053; 82570; 82803; 83986-QW; 84156; 85025; 85610; 85730; 86780; 86850; 86900; 86901; 88307-TC; C9803-CS; U0003; U0005

== ENCOUNTER 2022-04-27 10:07 | Emergency (ER) | payer OTHER ==
[2022-04-27 10:12] VITALS: BP 125/78; PULSE 74; RESP 18; TEMP 98.4; BMI 35.2
[2022-04-27] MEDS ORDERED: ACETAMINOPHEN 500 MG TABLET (FP) PO ONE (11:52)
[2022-04-27] MEDS ORDERED: KETOROLAC TROMETHAMINE 30 MG/1 ML VIAL IM ONE (11:52)
[2022-04-27] MEDS ORDERED: ACETAMINOPHEN 500 MG TABLET (FP) ONE (12:07)
[2022-04-27] MEDS ORDERED: KETOROLAC TROMETHAMINE 30 MG/1 ML VIAL ONE (12:07)
== END 2022-04-27 13:08 | disposition home or self-care (01) ==
LOC: JER 10:07
PROC: 3E023GC Introduction of Other Therapeutic Substance into Muscle, Percutaneous Approach (ICD-10-PCS; principal; 2022-04-27)
DX: M79.642 Pain in left hand (principal)
CPT/HCPCS: 73130-TC-LT-FY; 99284-25

== ENCOUNTER 2022-07-09 15:06 | Emergency (ER) | payer OTHER ==
[2022-07-09 15:22] VITALS: BP 133/71; PULSE 77; RESP 18; TEMP 98; BMI 35.9
[2022-07-09] MEDS ORDERED: KETOROLAC TROMETHAMINE 30 MG/1 ML VIAL IM ONE (16:12)
[2022-07-09] MEDS ORDERED: KETOROLAC TROMETHAMINE 30 MG/1 ML VIAL ONE (16:24)
[2022-07-09 17:46] LABS: BASO % 0.6 % (0-2.0); HEMATOCRIT 37.8 % (32.4-45.2); HEMOGLOBIN 12.7 GM/dL (10.7-15.3); LYMPH % 30.9 % (8-40); MCH 29.7 pg (25.7-33.7); MCHC 33.6 g/dl (32.0-36.0); MEAN CELL VOLUME 88.2 fl (80-96); MONO % 6.3 % (3.8-10.2); NEUT % 61.2 % (42.8-82.8); PLATELET COUNT 222 10^3/uL (134-434); RBC 4.28 M/mm3 (3.60-5.2); RDW 14.2 % (11.6-15.6); WHITE BLOOD COUNT 5.5 K/mm3 (4.0-10.0)
[2022-07-09 18:06] LABS: POTASSIUM 4.3 mmol/L (3.5-5.1)
[2022-07-09 18:07] LABS: CALCIUM 9.2 mg/dL (8.5-10.1)
[2022-07-09 18:09] LABS: BLOOD UREA NITROGEN 10.4 mg/dL (7-18)
[2022-07-09 18:11] LABS: CREATININE 0.8 mg/dL (0.55-1.3)
[2022-07-09 18:12] LABS: BILIRUBIN,TOTAL 0.4 mg/dL (0.2-1)
[2022-07-09 18:13] LABS: TOT PROT 7.9 g/dl (6.4-8.2)
== END 2022-07-09 20:33 | disposition home or self-care (01) ==
LOC: JERFT 15:06 → JER 15:06 → JERFT 20:33
PROC: 3E0233Z Introduction of Anti-inflammatory into Muscle, Percutaneous Approach (ICD-10-PCS; principal; 2022-07-09)
DX: N64.4 Mastodynia (principal)
CPT/HCPCS: 36415; 76642-TC-LT; 80053; 85025; 99284-25

== ENCOUNTER 2022-10-28 03:57 | Day surgery (SDC) | payer OTHER ==
[2022-10-27 16:53] VITALS: BMI 33.7
[2022-10-28] MEDS ORDERED: LIDOCAINE HCL 1%, 10 MG/ML (20ML VIAL) ONE (10:13)
[2022-10-28] MEDS ORDERED: MIDAZOLAM HCL 2 MG/2 ML SINGLE DOSE VIAL ONE (10:29)
[2022-10-28] MEDS ORDERED: PROPOFOL 20 ML ONE (11:05)
[2022-10-28] MEDS ORDERED: LIDOCAINE HCL 1%, 10 MG/ML (20ML VIAL) NR ONE ×2 (11:14)
[2022-10-28] MEDS ORDERED: ONDANSETRON 4 MG/2 ML VIAL IVPUSH PRN (11:55)
[2022-10-28] MEDS ORDERED: oxyCODONE HCL 5 MG TABLET PO PRN (11:55)
[2022-10-28] MEDS ORDERED: LACTATED RINGERS SOLUTION 1,000 ML IV SCH (12:00)
[2022-10-28 12:26] VITALS: RESP 18
[2022-10-28 14:26] VITALS: BP 119/84; PULSE 65; TEMP 98
== END 2022-10-28 13:54 | disposition home or self-care (01) ==
LOC: JASU-SURG 03:57
PROVIDERS: ATTEND Surgery
PROC: 0HBU0ZX Excision of Left Breast, Open Approach, Diagnostic (ICD-10-PCS; principal; 2022-10-28 10:00)
DX: M72.8 Other fibroblastic disorders (principal)
CPT/HCPCS: 81025; 88307-TC; 88341-TC; 88342-TC; 94760

== ENCOUNTER 2023-06-24 12:30 | Emergency (ER) | payer OTHER ==
[2023-06-24 12:43] VITALS: BP 120/66; PULSE 84; RESP 18; TEMP 98; BMI 31.6
[2023-06-24] MEDS ORDERED: FAMOTIDINE 10 MG TABLET ONE (13:54)
[2023-06-24] MEDS ORDERED: MAG HYDROX/AL HYDROX/SIMETH 30 ML UNIT-DOSE CUP ONE (13:54)
[2023-06-24] MEDS: MAG HYDROX/AL HYDROX/SIMETH 30 ML UNIT-DOSE CUP PO ONE (14:15)
[2023-06-24] MEDS: FAMOTIDINE 10 MG TABLET PO ONE (14:15)
[2023-06-24 14:22] LABS: PH,URINE 6.5 (5.0-8.0); URINE APPEARANCE CLEAR; URINE BILIRUBIN NEGATIVE (NEGATIVE); URINE COLOR YELLOW; URINE GLUCOSE (UA) NEGATIVE (NEGATIVE); URINE KETONE TRACE (NEGATIVE); URINE LEUK ESTERASE NEGATIVE (NEGATIVE); URINE NITRITE NEGATIVE (NEGATIVE); URINE PROTEIN TRACE (NEGATIVE)
[2023-06-24 14:23] LABS: BASO % 0.5 % (0-2.0); EOS % 0.9 % (0-4.5); HCG,QUALITATIVE URINE Positive; HEMATOCRIT 38.3 % (32.4-45.2); HEMOGLOBIN 12.8 GM/dL (10.7-15.3); MCH 29.7 pg (25.7-33.7); MCHC 33.3 g/dl (32.0-36.0); MEAN CELL VOLUME 89.3 fl (80-96); MEAN PLT VOLUME 9.7 fl (7.5-11.1); MONO % 6.2 % (3.8-10.2); NEUT % 71.4 % (42.8-82.8); PLATELET COUNT 194 10^3/uL (134-434); RBC 4.29 M/mm3 (3.60-5.2); RDW 14.4 % (11.6-15.6); WHITE BLOOD COUNT 6.9 K/mm3 (4.0-10.0)
[2023-06-24 14:43] LABS: POTASSIUM 3.8 mmol/L (3.5-5.1)
[2023-06-24 14:45] LABS: CALCIUM 8.9 mg/dL (8.5-10.1)
[2023-06-24 14:46] LABS: ALBUMIN 3.5 g/dl (3.4-5.0); BLOOD UREA NITROGEN 8.9 mg/dL (7-18)
[2023-06-24 14:49] LABS: CREATININE 0.7 mg/dL (0.55-1.3)
[2023-06-24 14:50] LABS: BILIRUBIN,TOTAL 0.4 mg/dL (0.2-1); TOT PROT 6.9 g/dl (6.4-8.2)
== END 2023-06-24 17:55 | disposition home or self-care (01) ==
LOC: JER 12:30
DX: O26.891 Other specified pregnancy related conditions, first trimester (principal); R11.0 Nausea; R53.1 Weakness; R53.83 Other fatigue; R10.13 Epigastric pain; R53.81 Other malaise; Z3A.01 Less than 8 weeks gestation of pregnancy; Z20.822 Contact with and (suspected) exposure to COVID-19
CPT/HCPCS: 0241U-QW; 36415; 80053; 81003; 83735; 84443; 84702; 84703; 85025; 87086; 99283-25

== ENCOUNTER 2024-02-15 08:10 | Inpatient (IN) | payer OTHER ==
[2024-02-15] MEDS ORDERED: ELECTROLYTE-148 SOLN 1,000 ML IV SCH (08:45)
[2024-02-15 09:48] VITALS: BMI 36.8
[2024-02-15] MEDS: DINOPROSTONE 10 MG VAGINAL SUPPOSITORY VG STA ×2 (10:10→22:09)
[2024-02-15] MEDS: LACTATED RINGERS SOLUTION 1,000 ML/1,000 ML INFUS.BAG IV SCH (10:34)
[2024-02-15 10:48] LABS: BASO % 0.2 % (0-2.0); EOS % 0.7 % (0-4.5); HEMATOCRIT 35.6 % (32.4-45.2); HEMOGLOBIN 11.7 GM/dL (10.7-15.3); LYMPH % 17.2 % (8-40); MCH 29.6 pg (25.7-33.7); MCHC 32.8 g/dl (32.0-36.0); MEAN CELL VOLUME 90.2 fl (80-96); MEAN PLT VOLUME 9.6 fl (7.5-11.1); NEUT % 77.9 % (42.8-82.8); PLATELET COUNT 202 10^3/uL (134-434); RBC 3.95 M/mm3 (3.60-5.2); RDW 14.4 % (11.6-15.6); WHITE BLOOD COUNT 7.1 K/mm3 (4.0-10.0)
[2024-02-15 10:56] LABS: INR 0.93 (0.83-1.09); PROTHROMBIN TIME (PATIENT) 10.5 SEC (9.7-13.0)
[2024-02-15 10:58] LABS: ACTIVATED PTT 31.3 SECONDS (25.2-36.5)
[2024-02-15 11:14] LABS: POTASSIUM 3.8 mmol/L (3.5-5.1)
[2024-02-15 11:16] LABS: BLOOD UREA NITROGEN 8.9 mg/dL (7-18)
[2024-02-15 11:19] LABS: CREATININE 0.7 mg/dL (0.55-1.3)
[2024-02-15] MEDS ORDERED: BUTORPHANOL TARTRATE 2 MG/ML VIAL ONE (22:45)
[2024-02-15] MEDS ORDERED: PROMETHAZINE HCL 25 MG/1 ML VIAL ONE (22:45)
[2024-02-15] MEDS ORDERED: BUTORPHANOL TARTRATE 1 MG/ML VIAL ONE (22:47)
[2024-02-15] MEDS: BUTORPHANOL TARTRATE 1 MG/ML VIAL IVPB ONE (22:55)
[2024-02-15] MEDS: PROMETHAZINE HCL 25 MG/1 ML VIAL IVPB ONE (22:55)
[2024-02-16] MEDS ORDERED: OXYTOCIN 20 UNITS in 0.9% NS 20 UNIT/1,000 ML INFUS.BAG IV ONE (04:35)
[2024-02-16] MEDS: OXYTOCIN 20 UNITS in 0.9% NS 20 UNIT/1,000 ML INFUS.BAG IV SCH ×2 (04:50→05:15)
[2024-02-16] MEDS: METHYLERGONOVINE MALEATE 0.2 MG/1 ML AMP IM PRN (04:52)
[2024-02-16] MEDS ORDERED: BISACODYL 10 MG SUPP.RECT RC PRN ×2 (04:58→05:04)
[2024-02-16] MEDS ORDERED: WITCH HAZEL 50% (TUCKS) 40 PAD/JAR PAD TP PRN ×2 (04:58→05:04)
[2024-02-16] MEDS ORDERED: BENZOCAINE 28 GM HEMORRHOIDAL OINTMENT TP PRN ×2 (04:58→05:04)
[2024-02-16] MEDS ORDERED: oxyCODONE HCL 5 MG TABLET PO PRN (05:04)
[2024-02-16] MEDS ORDERED: BENZOCAINE 20% 57 GM BOTTLE TP PRN (05:04)
[2024-02-16] MEDS ORDERED: ACETAMINOPHEN 325 MG TABLET (FP) PO PRN (05:04)
[2024-02-16] MEDS ORDERED: IBUPROFEN 600 MG TABLET (FP) PO PRN (05:04)
[2024-02-16] MEDS: IBUPROFEN 600 MG TABLET (FP) PO PRN (05:10)
[2024-02-16] MEDS: ACETAMINOPHEN 325 MG TABLET (FP) PO PRN (09:13)
[2024-02-16] MEDS: BENZOCAINE 20% 57 GM BOTTLE TP PRN (09:16)
[2024-02-16] MEDS: SENNOSIDES/DOCUSATE COMBO (SENNA PLUS) TABLET (UD) PO PRN (21:39)
[2024-02-17 05:19] VITALS: RESP 18
[2024-02-17 09:06] LABS: BASO % 0.4 % (0-2.0); EOS % 1.2 % (0-4.5); HEMATOCRIT 33.6 % (32.4-45.2); HEMOGLOBIN 11.2 GM/dL (10.7-15.3); LYMPH % 21.9 % (8-40); MCH 29.9 pg (25.7-33.7); MCHC 33.3 g/dl (32.0-36.0); MEAN CELL VOLUME 89.9 fl (80-96); MEAN PLT VOLUME 9.9 fl (7.5-11.1); MONO % 4.8 % (3.8-10.2); NEUT % 71.7 % (42.8-82.8); PLATELET COUNT 198 10^3/uL (134-434); RBC 3.74 M/mm3 (3.60-5.2); RDW 14.7 % (11.6-15.6); WHITE BLOOD COUNT 8.8 K/mm3 (4.0-10.0)
[2024-02-17] MEDS ORDERED: SENNOSIDES/DOCUSATE COMBO (SENNA PLUS) TABLET (UD) PO PRN (22:00)
[2024-02-18 10:36] VITALS: BP 135/75; PULSE 95; TEMP 98
== END 2024-02-18 13:50 | disposition home or self-care (01) | DRG 560 ==
LOC: JLDR 08:10 → J3W 02-16 08:05
PROVIDERS: ADMIT Student in an Organized Health Care Education/Training Program; ATTEND Student in an Organized Health Care Education/Training Program
PROC: 10E0XZZ Delivery of Products of Conception, External Approach (ICD-10-PCS; principal; 2024-02-16)
DX: O48.0 Post-term pregnancy (principal); Z3A.40 40 weeks gestation of pregnancy; O69.81X0 Labor and delivery complicated by cord around neck, without compression, not applicable or unspecified; Z37.0 Single live birth
CPT/HCPCS: 36415; 59409; 80048; 85025; 85610; 85730; 86780; 86850; 86900; 86901